=== PATIENT | male | born 1965 | race African-American/Black ===

== ENCOUNTER 2018-08-07 05:28 | Emergency (ER) | payer MEDICARE, OTHER ==
[~2018-08-07] VITALS: Ht 170.2 cm; Wt 99.5 kg
[2018-08-07 10:37] VITALS: BP 124/67
== END 2018-08-07 10:38 | disposition home or self-care (01) ==
LOC: ER 05:28
DX: F41.9 Anxiety disorder, unspecified (principal); E11.9 Type 2 diabetes mellitus without complications; F31.9 Bipolar disorder, unspecified; M10.9 Gout, unspecified; Z87.891 Personal history of nicotine dependence; Z59.0 Homelessness
CPT/HCPCS: 99284

== ENCOUNTER 2018-08-08 22:38 | Emergency (ER) | payer MEDICARE, OTHER ==
[~2018-08-08] VITALS: Ht 170.2 cm; Wt 87.0 kg
[2018-08-09 07:12] LABS: BASOPHILS % 0.4 % (0.0-2.0); HEMOGLOBIN. 14.6 g/dL (14.0-18.0); LYMPHOCYTES % 26.6 % (20.0-50.0); MEAN CORPUSCULAR HEMOGLOBIN 30.8 pg (28.0-32.0); MEAN CORPUSCULAR VOLUME 92.8 fL (80.0-94.0); MEAN PLATELET VOLUME 11.6 fl (7.4-10.4); MONOCYTES % 8.1 % (2.0-8.0); NEUTROPHILS % 62.9 % (40.0-76.0); PLATELET 174 x1000/uL (130-400); RED BLOOD CELL COUNT 4.74 mill/uL (4.7-6.1); RED CELL DISTRIBUTION WIDTH 14.6 % (11.6-14.6)
[2018-08-09 07:19] LABS: CHLORIDE 108 mEq/L (98-107)
[2018-08-09 07:21] LABS: ETHANOL BLOOD < 10 mg/dL
[2018-08-09] MEDS ORDERED: DIVALPROEX SODIUM 500MG ER TABLET PO SCH (09:00)
[2018-08-09 09:20] LABS: *AMPHETAMINES SCREEN URINE NEGATIVE (NEGATIVE); *BARBITURATES SCREEN URINE NEGATIVE (NEGATIVE); *BENZODIAZEPINES SCREEN URINE NEGATIVE (NEGATIVE)
[2018-08-09 09:21] LABS: *COCAINE SCREEN URINE NEGATIVE (NEGATIVE); METHADONE URINE SCREEN NEGATIVE (NEGATIVE); OPIATES URINE SCREEN NEGATIVE (NEGATIVE)
[2018-08-09 09:22] LABS: CANNABINOID URINE SCREEN NEGATIVE (NEGATIVE); PHENCYCLIDINE URINE SCREEN NEGATIVE (NEGATIVE)
[2018-08-09 12:30] VITALS: BP 125/70
== END 2018-08-09 16:01 | disposition home or self-care (01) ==
LOC: ER 22:38
DX: F20.9 Schizophrenia, unspecified (principal); I10 Essential (primary) hypertension; F31.9 Bipolar disorder, unspecified; E11.9 Type 2 diabetes mellitus without complications; M10.9 Gout, unspecified; Z91.14 Patient's other noncompliance with medication regimen
CPT/HCPCS: 36415; 80048; 80165; 80305; 80307; 80320; 80329; 99284; G0480

== ENCOUNTER 2018-09-06 00:49 | Emergency (ER) | payer MEDICARE, MEDICAID ==
[~2018-09-06] VITALS: Ht 170.2 cm; Wt 87.0 kg
[2018-09-06 05:17] LABS: BASOPHILS % 0.3 % (0.0-2.0); EOSINOPHILS % 1.6 % (0.0-5.0); HEMATOCRIT. 48.4 % (42.0-52.0); LYMPHOCYTES % 26.5 % (20.0-50.0); MEAN CORPUSCULAR HEMOGLOBIN 30.5 pg (28.0-32.0); MEAN CORPUSCULAR VOLUME 92.1 fL (80.0-94.0); MEAN PLATELET VOLUME 11.3 fl (7.4-10.4); MONOCYTES % 6.7 % (2.0-8.0); NEUTROPHILS % 64.9 % (40.0-76.0); PLATELET 188 x1000/uL (130-400); RED BLOOD CELL COUNT 5.25 mill/uL (4.7-6.1); RED CELL DISTRIBUTION WIDTH 14.2 % (11.6-14.6)
[2018-09-06 06:08] LABS: CHLORIDE 105 mEq/L (98-107)
[2018-09-06 06:18] LABS: ETHANOL BLOOD < 10 mg/dL
[2018-09-06 06:40] LABS: CLARITY URINE CLEAR (CLEAR); COLOR URINE YELLOW (YELLOW); KETONES URINE TRACE (NEGATIVE); LEUKOCYTE ESTERASE URINE 1+ (NEGATIVE); NITRITE URINE NEGATIVE (NEGATIVE); OCCULT BLOOD URINE NEGATIVE (NEGATIVE); PH URINE 5.5 (4.5-8.0); PROTEIN URINE NEGATIVE (NEGATIVE); SPECIFIC GRAVITY URINE 1.021 (1.005-1.030); UROBILINOGEN URINE 0.2 E.U./dL (0.2-1.0)
[2018-09-06 06:58] LABS: *AMPHETAMINES SCREEN URINE NEGATIVE (NEGATIVE); *BARBITURATES SCREEN URINE NEGATIVE (NEGATIVE); *BENZODIAZEPINES SCREEN URINE NEGATIVE (NEGATIVE); *COCAINE SCREEN URINE NEGATIVE (NEGATIVE); METHADONE URINE SCREEN NEGATIVE (NEGATIVE)
[2018-09-06 06:59] LABS: CANNABINOID URINE SCREEN NEGATIVE (NEGATIVE); OPIATES URINE SCREEN NEGATIVE (NEGATIVE); PHENCYCLIDINE URINE SCREEN NEGATIVE (NEGATIVE)
[2018-09-06 07:00] VITALS: BP 120/88
== END 2018-09-06 07:06 | disposition home or self-care (01) ==
LOC: ER 00:49
DX: Z76.0 Encounter for issue of repeat prescription (principal); F31.9 Bipolar disorder, unspecified; M10.9 Gout, unspecified; Z87.891 Personal history of nicotine dependence; Z98.890 Other specified postprocedural states
CPT/HCPCS: 36415; 80305; 80320; 99283; G0480

== ENCOUNTER 2018-09-10 01:24 | Emergency (ER) | payer MEDICARE, MEDICAID ==
[~2018-09-10] VITALS: Ht 170.2 cm; Wt 82.0 kg
[2018-09-10] MEDS ORDERED: DIVALPROEX SODIUM 250MG ER TABLET PO ONE (04:15)
[2018-09-10 04:36] LABS: *AMPHETAMINES SCREEN URINE NEGATIVE (NEGATIVE); *BARBITURATES SCREEN URINE NEGATIVE (NEGATIVE); *BENZODIAZEPINES SCREEN URINE NEGATIVE (NEGATIVE); *COCAINE SCREEN URINE NEGATIVE (NEGATIVE); METHADONE URINE SCREEN NEGATIVE (NEGATIVE); OPIATES URINE SCREEN NEGATIVE (NEGATIVE)
[2018-09-10 04:37] LABS: CANNABINOID URINE SCREEN NEGATIVE (NEGATIVE); PHENCYCLIDINE URINE SCREEN NEGATIVE (NEGATIVE)
[2018-09-10 05:15] VITALS: BP 126/74
== END 2018-09-10 06:11 | disposition home or self-care (01) ==
LOC: ER 01:24
DX: Z76.0 Encounter for issue of repeat prescription (principal); F31.9 Bipolar disorder, unspecified; Z59.0 Homelessness
CPT/HCPCS: 80305; 99283

== ENCOUNTER 2018-09-12 00:37 | Emergency (ER) | payer MEDICARE, MEDICAID ==
[~2018-09-12] VITALS: Ht 170.2 cm; Wt 86.0 kg
[2018-09-12 03:40] VITALS: BP 118/79
== END 2018-09-12 03:41 | disposition home or self-care (01) ==
LOC: ER 01:36
DX: R42 Dizziness and giddiness (principal); F31.9 Bipolar disorder, unspecified
CPT/HCPCS: 99283

== ENCOUNTER 2018-09-15 01:54 | Emergency (ER) | payer MEDICARE, MEDICAID ==
[~2018-09-15] VITALS: Ht 167.6 cm; Wt 87.0 kg
[2018-09-15] MEDS ORDERED: ACETAMINOPHEN 650MG/20.3ML UDC PO ONE (07:00)
[2018-09-15 08:08] LABS: BASOPHILS % 0.5 % (0.0-2.0); EOSINOPHILS % 1.7 % (0.0-5.0); HEMATOCRIT. 44.8 % (42.0-52.0); LYMPHOCYTES % 29.4 % (20.0-50.0); MEAN CORPUSCULAR HEMOGLOBIN 30.9 pg (28.0-32.0); MEAN CORPUSCULAR VOLUME 92.4 fL (80.0-94.0); MEAN PLATELET VOLUME 10.9 fl (7.4-10.4); MONOCYTES % 6.6 % (2.0-8.0); NEUTROPHILS % 61.8 % (40.0-76.0); PLATELET 194 x1000/uL (130-400); RED BLOOD CELL COUNT 4.84 mill/uL (4.7-6.1); RED CELL DISTRIBUTION WIDTH 14.3 % (11.6-14.6)
[2018-09-15 08:15] LABS: CHLORIDE 106 mEq/L (98-107)
[2018-09-15 08:19] LABS: ETHANOL BLOOD < 10 mg/dL
[2018-09-15 09:00] VITALS: BP 121/68
== END 2018-09-15 09:18 | disposition left against medical advice (07) ==
LOC: ER 01:54
DX: M54.5 Low back pain (principal); E11.9 Type 2 diabetes mellitus without complications; F31.9 Bipolar disorder, unspecified; M10.9 Gout, unspecified
CPT/HCPCS: 36415; 80320; 99283; G0480

== ENCOUNTER 2018-09-29 01:49 | Emergency (ER) | payer MEDICARE, MEDICAID ==
[~2018-09-29] VITALS: Ht 175.3 cm; Wt 86.0 kg
[2018-09-29] MEDS ORDERED: IBUPROFEN 800MG TABLET PO ONE (02:30)
[2018-09-29 03:29] VITALS: BP 117/79
== END 2018-09-29 03:31 | disposition home or self-care (01) ==
LOC: ER 01:49
DX: S20.212A Contusion of left front wall of thorax, initial encounter (principal); F31.9 Bipolar disorder, unspecified; W19.XXXA Unspecified fall, initial encounter; Y93.89 Activity, other specified; Y92.89 Other specified places as the place of occurrence of the external cause; Y99.8 Other external cause status
CPT/HCPCS: 71045; 99283

== ENCOUNTER 2018-10-05 06:38 | Emergency (ER) | payer MEDICARE, MEDICAID ==
[~2018-10-05] VITALS: Ht 167.6 cm; Wt 82.5 kg
[2018-10-05] MEDS ORDERED: IBUPROFEN 600MG TABLET PO STA (07:24)
[2018-10-05] MEDS ORDERED: DIVALPROEX SODIUM 250MG ER TABLET PO ONE (07:30)
[2018-10-05] MEDS ORDERED: DIVALPROEX SODIUM 250MG ER TABLET PO SCH (07:45)
[2018-10-05 08:23] VITALS: BP 118/64
== END 2018-10-05 08:25 | disposition home or self-care (01) ==
LOC: ER 06:38
DX: G40.909 Epilepsy, unspecified, not intractable, without status epilepticus (principal); M54.9 Dorsalgia, unspecified; F31.9 Bipolar disorder, unspecified; E11.9 Type 2 diabetes mellitus without complications
CPT/HCPCS: 99283

== ENCOUNTER 2018-10-09 00:37 | Emergency (ER) | payer MEDICARE, MEDICAID ==
[~2018-10-09] VITALS: Ht 170.2 cm; Wt 87.0 kg
[2018-10-09 01:16] VITALS: BP 114/78
[2018-10-09] MEDS ORDERED: ACETAMINOPHEN 500MG TABLET PO ONE (03:15)
== END 2018-10-09 06:00 | disposition home or self-care (01) ==
LOC: ER 00:37
DX: M79.10 Myalgia, unspecified site (principal); F31.9 Bipolar disorder, unspecified; E11.9 Type 2 diabetes mellitus without complications; Z59.0 Homelessness
CPT/HCPCS: 99281

== ENCOUNTER 2018-10-15 23:44 | Emergency (ER) | payer MEDICARE, MEDICAID ==
[~2018-10-15] VITALS: Ht 167.6 cm; Wt 86.0 kg
[2018-10-16 01:43] VITALS: BP 121/83
== END 2018-10-16 02:03 | disposition home or self-care (01) ==
LOC: ER 23:44
DX: G40.909 Epilepsy, unspecified, not intractable, without status epilepticus (principal); F31.9 Bipolar disorder, unspecified; E11.9 Type 2 diabetes mellitus without complications; F17.200 Nicotine dependence, unspecified, uncomplicated; F12.10 Cannabis abuse, uncomplicated
CPT/HCPCS: 99282; 99283

== ENCOUNTER 2018-10-19 00:27 | Emergency (ER) | payer MEDICARE, MEDICAID ==
[~2018-10-19] VITALS: Ht 170.2 cm; Wt 87.0 kg
[2018-10-19 02:08] VITALS: BP 117/69
== END 2018-10-19 04:05 | disposition home or self-care (01) ==
LOC: ER 00:27
DX: F31.9 Bipolar disorder, unspecified (principal); E11.9 Type 2 diabetes mellitus without complications
CPT/HCPCS: 82962; 99282; 99284

== ENCOUNTER 2018-12-26 22:02 | Emergency (ER) | payer MEDICARE, MEDICAID ==
[~2018-12-26] VITALS: Ht 170.2 cm; Wt 83.0 kg
[2018-12-26 22:34] VITALS: BP 131/86
== END 2018-12-27 03:48 | disposition left against medical advice (07) ==
LOC: ER 22:02
DX: Z53.21 Procedure and treatment not carried out due to patient leaving prior to being seen by health care provider (principal); E11.9 Type 2 diabetes mellitus without complications; F31.9 Bipolar disorder, unspecified

== ENCOUNTER 2019-01-23 21:56 | Emergency (ER) | payer MEDICARE, OTHER ==
[~2019-01-23] VITALS: Ht 177.8 cm; Wt 82.0 kg
[2019-01-24] MEDS ORDERED: IBUPROFEN 600MG TABLET PO ONE (02:30)
[2019-01-24 02:40] VITALS: BP 126/89
== END 2019-01-24 02:54 | disposition home or self-care (01) ==
LOC: ER 21:56
DX: M25.562 Pain in left knee (principal); M25.561 Pain in right knee; F31.9 Bipolar disorder, unspecified; M10.9 Gout, unspecified
CPT/HCPCS: 99282

== ENCOUNTER 2019-02-11 22:50 | Emergency (ER) | payer MEDICARE, OTHER ==
[~2019-02-11] VITALS: Ht 170.2 cm; Wt 83.0 kg
[2019-02-12] MEDS ORDERED: IBUPROFEN 600MG TABLET PO ONE (04:30)
[2019-02-12 05:16] VITALS: BP 119/71
== END 2019-02-12 05:21 | disposition home or self-care (01) ==
LOC: ER 22:50
DX: G89.29 Other chronic pain (principal); M25.569 Pain in unspecified knee; R07.81 Pleurodynia; R05 Cough; F31.9 Bipolar disorder, unspecified
CPT/HCPCS: 99283

== ENCOUNTER 2019-03-01 06:42 | Emergency (ER) | payer MEDICARE, OTHER ==
[~2019-03-01] VITALS: Ht 170.2 cm; Wt 81.0 kg
[2019-03-01 07:10] VITALS: BP 129/75
[2019-03-01] MEDS ORDERED: NAPROXEN 250MG TABLET PO ONE (07:15)
== END 2019-03-01 07:17 | disposition home or self-care (01) ==
LOC: ER 06:42
DX: M25.561 Pain in right knee (principal); M25.562 Pain in left knee; Z87.891 Personal history of nicotine dependence; F31.9 Bipolar disorder, unspecified; M10.9 Gout, unspecified
CPT/HCPCS: 99282

== ENCOUNTER 2019-03-15 23:40 | Emergency (ER) | payer MEDICARE, OTHER ==
[~2019-03-15] VITALS: Ht 170.2 cm; Wt 82.0 kg
[2019-03-16 05:08] VITALS: BP 129/66
== END 2019-03-16 05:16 | disposition home or self-care (01) ==
LOC: ER 23:40
DX: F41.1 Generalized anxiety disorder (principal); F31.9 Bipolar disorder, unspecified; M10.9 Gout, unspecified
CPT/HCPCS: 99283

== ENCOUNTER 2025-04-28 22:42 | Emergency (ER) | payer OTHER ==
[~2025-04-28] VITALS: Ht 170.2 cm; Wt 93.0 kg
[2025-04-28 23:01] VITALS: O2SAT 99
[2025-04-28 23:44] LABS: BASOPHILS % 0.4 % (0.0-2.0); EOSINOPHILS % 1.2 % (0.0-5.0); HEMATOCRIT. 37.7 % (42.0-52.0); HEMOGLOBIN. 12.3 g/dL (14.0-18.0); LYMPHOCYTES % 30.5 % (20.0-50.0); MEAN PLATELET VOLUME 10.7 fl (7.4-10.4); MONOCYTES % 5.8 % (2.0-8.0); NEUTROPHILS % 62.1 % (40.0-76.0); PLATELET 230 x1000/uL (130-400); RED BLOOD CELL COUNT 4.12 mill/uL (4.7-6.1); RED CELL DISTRIBUTION WIDTH 14.7 % (11.6-14.6)
[2025-04-28 23:56] LABS: CREATININE 1.0 mg/dL (0.6-1.3); UREA NITROGEN BLOOD 9 mg/dL (9-23)
[2025-04-28 23:57] LABS: ETHANOL BLOOD < 10 mg/dL (<10)
[2025-04-29 00:15] LABS: *AMPHETAMINES SCREEN URINE NEGATIVE (NEGATIVE); *BARBITURATES SCREEN URINE NEGATIVE (NEGATIVE); *BENZODIAZEPINES SCREEN URINE NEGATIVE (NEGATIVE); *COCAINE SCREEN URINE NEGATIVE (NEGATIVE); CANNABINOID URINE SCREEN NEGATIVE (NEGATIVE); ECSTASY MDMA SCREEN URINE NEGATIVE (NEGATIVE); METHADONE URINE SCREEN NEGATIVE (NEGATIVE); OPIATES URINE SCREEN NEGATIVE (NEGATIVE); PHENCYCLIDINE URINE SCREEN NEGATIVE (NEGATIVE)
[2025-04-29 10:55] VITALS: BP 148/94; PULSE 83; RESP 18; TEMP 36.6; O2SAT 100
== END 2025-04-29 10:58 | disposition home or self-care (01) ==
LOC: ER 22:42
DX: R45.851 Suicidal ideations (principal); F31.9 Bipolar disorder, unspecified; E11.9 Type 2 diabetes mellitus without complications; M10.9 Gout, unspecified; Z20.822 Contact with and (suspected) exposure to COVID-19; Z79.899 Other long term (current) drug therapy
CPT/HCPCS: 36415; 80048; 80305; 80307; 80320; 80329; 85025; 87426; 99283; 99284; G0480

== ENCOUNTER 2025-05-08 00:02 | Emergency (ER) | payer OTHER ==
[~2025-05-08] VITALS: Ht 162.6 cm; Wt 95.0 kg
[2025-05-08 00:12] VITALS: O2SAT 100
[2025-05-08 00:26] VITALS: TEMP 36.6; O2SAT 92
[2025-05-08 02:46] VITALS: BP 130/77; PULSE 85; RESP 16
[2025-05-08] MEDS: IBUPROFEN 600MG TABLET PO ONE (02:46)
[2025-05-08] MEDS ORDERED: IBUP-1455 MT (03:40)
== END 2025-05-08 04:10 | disposition home or self-care (01) ==
LOC: ER 00:02
DX: R51.9 Headache, unspecified (principal); E11.9 Type 2 diabetes mellitus without complications; F31.9 Bipolar disorder, unspecified
CPT/HCPCS: 99283